=== PATIENT | male | born 1995 | race Two or more races ===

== ENCOUNTER 2017-05-27 14:37 | Emergency (ER) | payer SELFPAY ==
[~2017-05-27] VITALS: Ht 195.6 cm; Wt 127.0 kg
[2017-05-27 14:54] VITALS: BP 120/75
== END 2017-05-27 16:35 | disposition home or self-care (01) ==
LOC: ER 14:38
DX: M25.562 Pain in left knee (principal)
CPT/HCPCS: 29505; 73564; 99284